=== PATIENT | female | born 1980 | race Caucasian/White ===

== ENCOUNTER → 2018-04-08 16:25 | Outpatient (CLI) | payer OTHER, SELFPAY ==
[2018-04-08 17:21] LABS: Add Manual Diff / Slide Review NO; Basophils Percent Auto 0.6 % (0-2); Eosinophils Percent Auto 4.4 % (2-4); Hematocrit 39.3 % (36-46); Hemoglobin 13.4 g/dL (12.0-16.0); Lymphocytes Percent Auto 31.6 % (25-40); Mean Corpuscular Hemoglobin 30.7 PG (26-34); Mean Corpuscular Volume 90.1 fL (80-100); Monocytes Percent Auto 6.6 % (3-14); Neutrophils Absolute Auto 3700 /uL (3000-5900); Neutrophils Percent Auto 56.8 % (50-75); Platelet Count 236 X10^3/uL (150-400); Red Blood Cell Count 4.36 X10^6/uL (4.0-5.2); Red Cell Distribution Width 13.3 % (11.6-14.8); White Blood Cell Count 6.6 X10^3/uL (4.5-11.0)
[2018-04-08 17:24] LABS: Blood Urea Nitrogen 21 mg/dL (7-17); Calcium 9.1 mg/dL (8.4-10.2); Carbon Dioxide 28 mmol/L (22-32); Chloride 102 mmol/L (98-107); Estimated Glomerular Filt Rate > 60.0 mL/min (>60); Glucose 88 mg/dL (70-100); HEMOLYSIS < 15 (0-50); Potassium 4.2 mmol/L (3.4-5.1); Sodium 138 mmol/L (137-145)
[2018-04-08 17:40] LABS: Free T4, Direct Thyroxine 0.79 ng/dL (0.78-2.19)
[2018-04-08 17:54] LABS: Thyroid Stimulating Hormone 1.63 uIU/mL (0.47-4.68)
[2018-04-08 18:00] LABS: Ferritin 9.3 ng/mL (6.27-137)
== END ==
PROVIDERS: PCP Physician Assistant; Visit Provider Psychiatry & Neurology Psychiatry
DX: Z51.81 Encounter for therapeutic drug level monitoring (principal); R53.83 Other fatigue
CPT/HCPCS: 36415; 80048; 82728; 84439; 84443; 85025

== ENCOUNTER → 2020-05-05 14:36 | Outpatient (CLI) | payer OTHER, SELFPAY ==
--- NOTE | 2020-05-05 14:37 | DI.RAD.S_ITS ---
PROCEDURE: XR KNEE RT 3V INDICATIONS: r knee pain TECHNIQUE: 3 views of the knee were acquired. COMPARISON: None. FINDINGS: Bones: No fractures or dislocations. No suspicious bony lesions. Soft tissues: There is a moderate-sized knee joint effusion. Otherwise, the overlying soft tissues are unremarkable. IMPRESSION: 1. No displaced knee fractures. 2. Knee joint effusion may be a sign for internal derangement. The need for further characterization utilizing MRI may be determined clinically. Dictated by: Galo Estevez M.D. on 05/05/2020 at 13:58 Approved by: Galo Estevez M.D. on 05/05/2020 at 14:10
== END ==
PROVIDERS: PCP Physician Assistant; Referring Provider Physician Assistant; Visit Provider Physician Assistant
DX: M25.561 Pain in right knee (principal); M25.461 Effusion, right knee
CPT/HCPCS: 73562

== ENCOUNTER → 2020-05-10 17:54 | Outpatient (CLI) | payer OTHER, SELFPAY ==
--- NOTE | 2020-05-10 17:56 | DI.MRI.S_ITS ---
PROCEDURE: MR KNEE RT WO CON INDICATIONS: R knee pain TECHNIQUE: Noncontrast sagittal PD fast spin echo and T2 fast spin echo with fat saturation, sagittal 3-D FLASH with fat saturation; coronal T1 spin echo and PD fast spin echo with fat saturation, and axial PD fast spin echo with fat saturation through the knee. COMPARISON: [facility], CR, XR KNEE RT 3V, 05/05/2020, 13:40. FINDINGS: Image quality: Excellent. Menisci: The medial and lateral menisci demonstrate normal morphology and internal signal. The meniscal root ligaments appear intact. Cruciate ligaments: The anterior and posterior cruciate ligaments appear intact. Medial structures: The medial collateral ligament appears intact. The posterior semimembranosus tendon insertionsand meniscocapsular junction appear intact. Visualized portions of the pes anserinus tendons appear normal. No abnormal bursal fluid. Lateral structures: The lateral collateral ligament, long and short heads of the biceps femoris tendon appear intact. The popliteus tendon appears normal. Iliotibial band appears normal. Anterior structures: The quadriceps and patellar tendons appear intact. Patellar alignment is normal. No femoral trochlear dysplasia or ventral trochlear prominence. Mild edema in the infrapatellar fat pad. Bones and cartilage: There is marrow edema in the anterolateral aspect of the tibial plateau, consistent with bone contusion. Adjacent soft tissue contusion is seen in the area. No fractures. Mild cartilage fibrillation of the patella femoral joint consistent with chondromalacia patella. Joint space: There is small knee joint effusion. There is a small Quiles's cyst. Normal appearing synovial plicae are incidentally noted. IMPRESSION: 1. Bone contusion in the anterior lateral aspect of the tibial plateau. No displaced fractures. 2. Small knee joint effusion. 3. Mild edema in the infrapatellar fat pad suggesting infrapatellar fat pad impingement. 4. Mild chondromalacia patella. 5. A small Quiles's cyst. Dictated by: Toy Mills M.D. on 05/11/2020 at 9:48 Approved by: Toy Mills M.D. on 05/11/2020 at 10:11
== END ==
PROVIDERS: PCP Physician Assistant; Referring Provider Physician Assistant; Visit Provider Physician Assistant
DX: M25.561 Pain in right knee (principal); S80.01XA Contusion of right knee, initial encounter; M25.461 Effusion, right knee; M22.41 Chondromalacia patellae, right knee; M71.21 Synovial cyst of popliteal space [Baker], right knee
CPT/HCPCS: 73721

== ENCOUNTER → 2022-02-10 13:47 | Outpatient (CLI) | payer OTHER, SELFPAY ==
--- NOTE | 2022-02-10 | DI.MRI.S_ITS ---
PROCEDURE: MR LUMBAR SPINE WO CON INDICATIONS: Segmental and somatic dysfunction of pelvic region TECHNIQUE: Noncontrast sagittal T1 spin echo and T2 fast echo, sagittal STIR, and T2 fast spin echo through the lumbar spine. In cases with scoliosis, additional coronal T2 fast spin echo may be performed. COMPARISON: None. FINDINGS: Image quality: This examination is limited by involuntary motion artifact. Alignment and Curvature: There is normal bony alignment. Bone Marrow: Marrow is of normal overall signal. No acute vertebral body compression fractures. Spinal Cord: Conus medullaris terminates at the T12-L1 level. Visualized cord demonstrates normal signal and size. Paraspinous Soft Tissues: No paravertebral masses. T12-L1: Normal appearance. L1-L2: Normal appearance. L2-L3: The disc height is well-preserved. Loss of disc signal is seen at this level. Mild disc bulge is seen, with a mild central disc protrusion. No significant neural foraminal narrowing is seen. Minimal central canal narrowing is seen. L3-L4: The disc height is well-preserved. Loss of disc signal is seen at this level. Mild to moderate disc bulge is seen, with a mild central disc protrusion. There is a focal annular fissure seen posteriorly. Mild facet joint hypertrophy is seen. There is mild right-sided and no significant left-sided neural foraminal narrowing. Mild central canal narrowing is seen. L4-L5: The disc height and disk signal are well-preserved. Moderate disc bulge is seen, which is eccentric to the right. There is a superimposed central disc protrusion. There is a focal annular fissure seen posteriorly. Moderate facet joint hypertrophy is seen. There is at least moderate bilateral neural foraminal narrowing seen. Moderate central canal narrowing is seen. L5-S1: The disc height and disk signal are well-preserved. Mild generalized disc bulge is seen. Mild to moderate facet hypertrophy is seen. No significant neural foraminal or central canal narrowing can be seen. IMPRESSION: Degenerative changes are seen, which are overall worst at the L4-L5 level. Dictated by: Chavez Foley M.D. on 02/11/2022 at 9:37 Approved by: Chavez Foley M.D. on 02/11/2022 at 9:39
== END ==
PROVIDERS: PCP Physician Assistant; Referring Provider Chiropractor; Visit Provider Chiropractor
DX: M47.26 Other spondylosis with radiculopathy, lumbar region (principal); M99.03 Segmental and somatic dysfunction of lumbar region; M99.02 Segmental and somatic dysfunction of thoracic region; M99.01 Segmental and somatic dysfunction of cervical region; S73.032A Other anterior subluxation of left hip, initial encounter; M99.05 Segmental and somatic dysfunction of pelvic region
CPT/HCPCS: 72148

== ENCOUNTER 2024-10-21 19:38 | Emergency (ER) | payer OTHER, SELFPAY ==
[2024-10-21 19:50] VITALS: BP 111/67; PULSE 88; RESP 16; TEMP 36.8; O2SAT 99; BMI 20.9
[2024-10-21 20:20] LABS: Ur Creatinine Normal (Normal); Ur Specific Gravity Normal (Normal); Urine pH Normal (Normal)
[2024-10-21 20:21] LABS: Urine Amphetamines Positive (Negative); Urine Barbiturates Negative (Negative); Urine Benzodiazepines Positive (Negative); Urine Cocaine Negative (Negative); Urine MDMA Negative (Negative); Urine Methadone Negative (Negative); Urine Methamphetamines Negative (Negative); Urine Opiates Negative (Negative); Urine Oxycodone Negative (Negative); Urine Phencyclidine Negative (Negative); Urine THC Negative (Negative); Urine Tricyclic Antidepressant Negative (Negative)
[2024-10-21 20:49] LABS: COVID19 -Nasal RAPID Negative (Negative)
[2024-10-21 20:50] LABS: Add Manual Diff / Slide Review NO; Basophils Absolute Auto 0 /uL (0-100); Basophils Percent Auto 0.4 % (0-2); Eosinophils Absolute Auto 100 /uL (0-450); Eosinophils Percent Auto 1.5 % (2-4); Hemoglobin 11.3 g/dL (12.0-16.0); Lymphocytes Absolute Auto 1800 /uL (1100-4500); Lymphocytes Percent Auto 24.6 % (25-40); Mean Corpuscular HGB Conc 33.3 % (30-36); Mean Corpuscular Hemoglobin 27.5 PG (26-34); Mean Corpuscular Volume 82.6 fL (80-100); Monocytes Absolute Auto 700 /uL (0-900); Monocytes Percent Auto 9.3 % (3-14); Neutrophils Absolute Auto 4700 /uL (1500-7000); Neutrophils Percent Auto 64.2 % (50-75); Platelet Count 345 X10^3/uL (150-400); Red Blood Cell Count 4.12 X10^6/uL (4.0-5.2); White Blood Cell Count 7.4 X10^3/uL (4.5-11.0)
[2024-10-21 20:51] LABS: Acetaminophen < 10 ug/mL (10-30); Alanine Aminotransferase 97 IU/L (<35); Albumin 4.3 g/dL (3.5-5.0); Albumin Globulin Ratio 1.4 (1.0-2.8); Alkaline Phosphatase 62 U/L (38-126); Aspartate Aminotransferase 60 IU/L (14-36); BUN Creatinine Ratio 22.9 (6-22); Blood Urea Nitrogen 16 mg/dL (7-17); Calcium 8.9 mg/dL (8.4-10.2); Carbon Dioxide 28 mmol/L (22-32); Chloride 101 mmol/L (98-107); Estimated Glomerular Filt Rate > 60 mL/min (>60); Ethanol (ETOH) < 10 mg/dL; Globulin 3.1 g/dL (1.7-4.1); Glucose 100 mg/dL (70-100); HEMOLYSIS < 15 (0-50); Potassium 4.2 mmol/L (3.4-5.1); Salicylate < 1.0 mg/dL (<20); Sodium 134 mmol/L (137-145); Total Protein 7.4 g/dL (6.3-8.2)
[2024-10-21 20:52] LABS: Bilirubin Total < 0.1 mg/dL (0.2-1.3)
[2024-10-21 21:28] LABS: Free T4, Direct Thyroxine 0.87 ng/dL (0.78-2.19)
[2024-10-21 21:47] LABS: Thyroid Stimulating Hormone 1.12 uIU/mL (0.47-4.68)
--- NOTE | 2024-10-21 23:13 | ED_ITS ---
HPI - Psych General Chief Complaint: Psychiatric Symptoms Stated Complaint: SI Time Seen by Provider: 10/21/24 21:28 Source: patient Mode of arrival: Ambulatory History of Present Illness HPI Narrative: 44-year-old female. Does have history of ADHD and anxiety. Does not see a mental health provider on a regular basis. Her medications are managed by her primary doctor. The last time she saw her primary doctor was in November. No recent changes to her medicine. Over the past several days she has had increase in depression. Today she comes emergency department with her . She feels like her depression has worsened over the past 24 hours. No specific cause. They do have 2 kids at home. She states she has had thoughts of not wanting to be here into hurting herself although she was not tried. No prior suicide attempts. Prior admission to the hospital for mental health issues. Related Data Home Medications Medication Instructions Recorded Confirmed [CALCIUM/MAGNESIUM] 2 tab PO QDAY ##0 04/15/17 04/26/22 [VITAMIN D3] 4,000 iu PO QDAY ##0 04/15/17 04/26/22 cetirizine 10 mg tablet 10 mg PO QDAY PRN ##0 08/03/19 04/26/22 ferrous sulfate 325 mg (65 mg See Rx Instructions .Route .COMPLEX 11/08/19 04/26/22 iron) tablet (FeroSul) Previous Rx's Medication Instructions Recorded dextroamphetamine-amphetamine ER 20 mg PO QAM #30 caps 06/07/22 20 mg 24hr capsule,extend release (Adderall XR) dextroamphetamine-amphetamine 10 10 mg PO BID PRN attention #50 tabs 12/10/22 mg tablet (Adderall) dextroamphetamine-amphetamine ER 20 mg PO QAM #30 caps 01/21/23 20 mg 24hr capsule,extend release (Adderall XR) fluoxetine 20 mg capsule 40 mg (2 x 20 mg) PO DAILY #60 caps 07/14/23 Allergies Allergy/AdvReac Type Severity Reaction Status Date / Time No Known Drug Allergies Allergy Verified 04/26/22 11:03 Review of Systems Review of Systems ROS Unobtainable: All systems reviewed & are unremarkable except as noted in HPI and below Patient History Surgical History (Updated 02/24/18 @ 06:10 by LÁZARO Ramires) Status post hernia repair Family History (Updated 06/14/16 @ 00:00 by LÁZARO Ramires) Father Age: 74 Type 2 diabetes mellitus without complication, without long- term current use of insulin Grandfather Type 2 diabetes mellitus without complication, without long-term current use of insulin Grandmother Hyperlipidemia Grandfather Heart disease Grandmother Cancer Social History Smoking Status: Never smoker Smoking Status: Never smoker Exam Initial Vital Signs Initial Vital Signs: Vital Signs Temperature 98.2 F 10/21/24 19:50 Pulse Rate 88 10/21/24 19:50 Respiratory Rate 16 10/21/24 19:50 Blood Pressure 111/67 10/21/24 19:50 Pulse Oximetry 99 10/21/24 19:50 Oxygen Delivery Method Room Air 10/21/24 19:50 Const General: cooperative, comfortable and No ill appearing HENMT Head: normal to inspection and normocephalic Resp Effort & Inspection: normal respiratory effort Cardio Rate: regular rate GI Inspection: normal to inspection Skin General: no rashes or lesions noted Neuro General: patient alert, patient awake, patient oriented x3 and moves all extremities Psych Appearance: grossly normal and well kempt Mental Status: mental status grossly normal and other (Sad) Speech and Movement: speech and movement normal Mood: other (Sad) Affect: sad Thought Content: no homicidality and suicidality Judgment: judgment good Course Orders Ordered: ED Orders 10/21/24 19:59 Consult to TRANSMITTER SUPERVISOR - Body Welder Stat 10/21/24 20:00 Urine Drug Screen, Rapid Stat 10/21/24 20:23 COVID19 -Nasal RAPID Stat 10/21/24 20:30 Acetaminophen Stat Complete Blood Count AUTO DIFF Stat Comprehensive Metabolic Panel Stat Ethanol (ETOH) Stat Free T4, Direct Thyroxine Stat Salicylate Stat Thyroid Stimulating Hormone Stat Vital Signs Vital signs: Vital Signs - 8 hr 10/21/24 19:50 Temperature 98.2 F Pulse Rate 88 Respiratory Rate 16 Blood Pressure 111/67 Pulse Oximetry 99 Oxygen Delivery Method Room Air MDM - Psych Lab Data 10/21/24 20:30 10/21/24 20:30 Labs: Lab Results 10/21/24 10/21/24 10/21/24 Range/Units 20:00 20:23 20:30 WBC 7.4 (4.5-11.0) X10^3/uL RBC 4.12 (4.0-5.2) X10^6/uL Hgb 11.3 L (12.0-16.0) g/dL Hct 34.0 L (36-46) % MCV 82.6 (80-100) fL MCH 27.5 (26-34) PG MCHC 33.3 (30-36) % RDW 16.0 H (11.6-14.8) % Plt Count 345 (150-400) X10^3/uL Neut % (Auto) 64.2 (50-75) % Lymph % (Auto) 24.6 L (25-40) % [place] % (Auto) 9.3 (3-14) % Eos % (Auto) 1.5 L (2-4) % Baso % (Auto) 0.4 (0-2) % Neut # (Auto) 4700 (2645-5356) /uL Lymph # (Auto) 1800 (7959-2475) /uL [place] # (Auto) 700 (0-900) /uL Eos # (Auto) 100 (0-450) /uL Baso # (Auto) 0 (0-100) /uL Sodium 134 L (137-145) mmol/L Potassium 4.2 (3.4-5.1) mmol/L Chloride 101 (98-107) mmol/L Carbon Dioxide 28 (22-32) mmol/L BUN 16 (7-17) mg/dL Creatinine 0.70 (0.52-1.04) mg/dL Estimated GFR > 60 (>60) mL/min BUN/Creatinine Ratio 22.9 H (6-22) Glucose 100 (70-100) mg/dL Calcium 8.9 (8.4-10.2) mg/dL Total Bilirubin < 0.1 L (0.2-1.3) mg/dL AST 60 H (14-36) IU/L ALT 97 H (<35) IU/L Alkaline Phosphatase 62 (38-126) U/L Total Protein 7.4 (6.3-8.2) g/dL Albumin 4.3 (3.5-5.0) g/dL Globulin 3.1 (1.7-4.1) g/dL Albumin/Globulin Ratio 1.4 (1.0-2.8) TSH 1.12 (0.47-4.68) uIU/mL Free T4 0.87 (0.78-2.19) ng/dL Salicylates < 1.0 (<20) mg/dL U Opiates 300ng/mL cut Negative (Negative) Ur Oxycodone Screen Negative (Negative) Urine Methadone Screen Negative (Negative) Acetaminophen < 10 (10-30) ug/mL Ur Barbiturates Screen Negative (Negative) U Tricyclic Antidepress Negative (Negative) Ur Phencyclidine Scrn Negative (Negative) Ur Amphetamines Screen Positive H (Negative) U Methamphetamines Scrn Negative (Negative) Ur MDMA Scrn (Ecstasy) Negative (Negative) U Benzodiazepines Scrn Positive H (Negative) Urine Cocaine Screen Negative (Negative) U Marijuana (THC) Screen Negative (Negative) Urine pH Normal (Normal) Urine Specific [place] Normal (Normal) Ethyl Alcohol < 10 ( - 10) mg/dL Ur Creatinine Normal (Normal) SARS-CoV-2 (PCR) Negative (Negative) Point of Care Testing Test Results Negative Urine Dip Bedside Urine Glucose Negative Bedside Urine Bilirubin - Negative Bedside Urine Ketone - Negative Urine Specific [place]ace 1.01 Bedside Urine Occult Blood - Negative Bedside Urine pH 6.5 Bedside Urine Protein - Negative Bedside Urine Urobilinogen - Negative Bedside Urine Nitrite - Negative Bedside Urine Leukocytes - Negative Esterase MDM Narrative Medical decision making narrative: Patient was medically cleared. Has been accepted to [facility]. Patient was voluntary. Patient is stable for transport. Discharge Plan Departure Patient Disposition: Xfer [facility]iatric [facility]osp Clinical Impression: Suicidal thoughts Prescriptions: No Action ferrous sulfate [FeroSul] 325 mg (65 mg iron) tablet See Rx Instructions .ROUTE .COMPLEX Rx Instructions: 30mg of iron PO every 3 days dextroamphetamine-amphetamine [Adderall XR] 20 mg capsule,extended release 24hr 20 mg PO QAM Qty: 30 0RF Rx Instructions: Take one cap by mouth each morning [VITAMIN D3] 4,000 iu PO QDAY Qty: 0 [CALCIUM/MAGNESIUM] 2 tab PO QDAY Qty: 0 cetirizine 10 mg tablet 10 mg PO QDAY PRNQty: 0 dextroamphetamine-amphetamine [Adderall] 10 mg tablet 10 mg PO BID PRN (Reason: attention) Qty: 50 0RF Rx Instructions: Take one tab by mouth twice a day as needed dextroamphetamine-amphetamine [Adderall XR] 20 mg capsule,extended release 24hr 20 mg PO QAM Qty: 30 0RF fluoxetine 20 mg capsule 40 mg PO DAILY Qty: 60 2RF Referrals: Mode Carlin DO [Primary Care Provider] -
--- NOTE | 2024-10-22 01:30 | PC.NURSE ---
[facility]OOK APPRENTICE note: 0130 Spoke to [facility] after sending packet 2 hours ago. [facility] is currently reviewing the packet.
[2024-10-22 04:48] VITALS: BP 105/67; PULSE 85; RESP 16; O2SAT 99
--- NOTE | 2024-10-22 04:57 | PC.NURSE ---
this RN gave report to Jackeline at [facility] at [phone]. provider aware.
== END 2024-10-22 05:13 ==
PROVIDERS: Emergency Provider Emergency Medicine; PCP Family Medicine
DX: R45.851 Suicidal ideations (principal)
CPT/HCPCS: 36415; 80053; 80305; 80320; 80329; 81003; 81025; 84439; 84443; 85025; 87635; 99283; 99284; G0480